=== PATIENT | female | born 1995 | race American Indian/Alaskan Native ===

== ENCOUNTER 2017-04-24 15:30 | Emergency (ER) | payer SELFPAY ==
[2017-04-24 18:10] LABS: Bacteria,Urine 1+ /HPF (Negative); Bilirubin,Urine NEG (Negative); Blood,Urine MOD (Negative); Ketones,Urine NEG (Negative); Leukocyte Esterase,Urine TR (Negative); Mucus,Urine FEW /HPF; Nitrite,Urine NEG (Negative); Protein,Urine <15 mg/dL mg/dL (Negative)
--- NOTE | 2017-04-24 19:24 | Emergency Department Report ---
ED Female HPI - General Chief complaint: Urogenital-Female Stated complaint: POSS STD Time Seen by Provider: 04/24/17 20:00 Source: patient, family Mode of arrival: Ambulatory Limitations: No Limitations - History of Present Illness Initial comments: Patient reports that she was told from a clinic that she went to and had STD testing that she has Chlamydia and she was told to come to the hospital to be treated. Patient is asymptomatic. She's not having any abdominal/pelvic pain. Denies any back pain. Denies any urinary burning frequency or urgency. Denies any fever or chills. Denies any nausea or vomiting. Her boyfriend is also here for treatment and he is not having any symptoms. She states that she has complete STD testing and they told her that she has antibodies for chlamydia. I discussed with her that there are no antibodies for Chlamydia he could be something else but she will need to call the clinic and get clarification. She said she wants to be treated for Chlamydia because they told her that she has Chlamydia. Complaint: possible STD -: unknown Severity scale (0 -10): 0 Are you Now?: No Last Menstrual Period: 04/13/17 EDC: 01/18/18 Associated Symptoms: denies: vaginal discharge, vaginal bleeding, abdominal pain , nausea/vomiting, fever/chills, headaches, loss of appetite, dysuria, hematuria , rash, seizure, shortness of breath, syncope, weakness - Related Data Sexually active: Yes Previous Rx's Medication Instructions Recorded Last Taken Type Nitrofurantoin [place]/M-Cryst 100 mg PO Q12HR #14 capsule 04/24/17 Unknown Rx [Macrobid CAP] Allergies Allergy/AdvReac Type Severity Reaction Status Date / Time No Known Allergies Allergy Unverified 04/24/17 16:29 ED Review of Systems ROS: Stated complaint: POSS STD Other details as noted in HPI Comment: All other systems reviewed and negative Constitutional: no symptoms reported ENT: denies: throat pain Respiratory: no symptoms reported Cardiovascular: denies: chest pain, palpitations, edema, syncope Genitourinary: denies: urgency, dysuria, frequency, hematuria, discharge, abnormal menses, dyspareunia Musculoskeletal: denies: back pain, joint swelling, arthralgia, myalgia Skin: denies: rash Neurological: denies: headache, numbness, paresthesias, confusion, abnormal gait , vertigo ED Past Medical Hx - Past Medical History Previous Medical History?: No - Surgical History Past Surgical History?: No - Family History Family history: no significant - Social History Smoking Status: Never Smoker Substance Use Type: None - Medications Home Medications: Home Medications Medication Instructions Recorded Confirmed Last Taken Type Nitrofurantoin [place]/M-Cryst 100 mg PO Q12HR #14 capsule 04/24/17 Unknown Rx [Macrobid CAP] ED Physical Exam - General Limitations: No Limitations General appearance: alert, in no apparent distress - Head Head exam: Present: atraumatic, normocephalic, normal inspection - Eye Eye exam: Present: normal appearance, PERRL, EOMI. Absent: periorbital swelling , periorbital tenderness - ENT ENT exam: Present: normal exam, normal orophraynx, mucous membranes moist, TM's normal bilaterally, normal external ear exam - Neck Neck exam: Present: normal inspection, full ROM. Absent: tenderness, meningismus, lymphadenopathy - Respiratory Respiratory exam: Present: normal lung sounds bilaterally. Absent: respiratory distress, chest wall tenderness, accessory muscle use - Cardiovascular Cardiovascular Exam: Present: regular rate, normal rhythm, normal heart sounds - GI/Abdominal GI/Abdominal exam: Present: soft, normal bowel sounds. Absent: distended, tenderness, guarding, rebound, rigid, organomegaly, mass, bruit, pulsatile mass , hernia - Extremities Exam Extremities exam: Present: normal inspection, full ROM, normal capillary refill , other (no clubbing, cyanosis or edema.). Absent: tenderness, pedal edema, joint swelling, calf tenderness - Back Exam Back exam: Present: normal inspection, full ROM. Absent: tenderness, CVA tenderness (R), CVA tenderness (L), muscle spasm, paraspinal tenderness, vertebral tenderness, rash noted - Neurological Exam Neurological exam: Present: alert, oriented X3, normal gait, reflexes normal. Absent: motor sensory deficit - Psychiatric Psychiatric exam: Present: normal affect, normal mood - Skin Skin exam: Present: warm, dry, intact, normal color. Absent: rash ED Course Vital Signs 04/24/17 04/24/17 16:30 19:57 Temperature 68 F L 98.0 F Pulse Rate 68 73 Respiratory 16 20 Rate Blood Pressure 110/56 Blood Pressure 115/68 [Left] O2 Sat by Pulse 100 100 Oximetry - Reevaluation(s) Reevaluation #1: 04/24/17 20:45 Patient treated empirically for gonorrhea and chlamydia in emergency room. She had no adverse reaction to medication. ED Medical Decision Making - Lab Data Lab Results 04/24/17 Range/Units 15:39 Urine Color Yellow (Yellow) Urine Turbidity Clear (Clear) Urine pH 7.0 (5.0-7.0) Ur Specific [place] 1.024 (1.003-1.030) Urine Protein <15 mg/dl (Negative) mg/dL Urine Glucose (UA) Neg (Negative) mg/dL Urine Ketones Neg (Negative) mg/dL Urine Blood Mod (Negative) Urine Nitrite Neg (Negative) Urine Bilirubin Neg (Negative) Urine Urobilinogen 2.0 (<2.0) mg/dL Ur Leukocyte Esterase Tr (Negative) Urine WBC (Auto) 5.0 (0.0-6.0) /HPF Urine RBC (Auto) 2.0 (0.0-6.0) /HPF U Epithel Cells (Auto) 1.0 (0-13.0) /HPF Urine Bacteria (Auto) 1+ (Negative) /HPF Urine Mucus Few /HPF Urine HCG, Qual Negative (Negative) Urine culture sent - Medical Decision Making ED course: Patient's care report that she had complete STD testing done at a clinic and they called her and told her that she has Chlamydia antibodies. Patient is here to be treated for Chlamydia. I discussed with her that there are no chlamydia and provided bodies but she could have antibodies for herpes or other STDs and she will need to call the clinic that did test him to clarify. Patient is asymptomatic and here with her boyfriend for treatment and wants to be treated Empirically. Patient treated for gonorrhea and chlamydia in emergency room with Rocephin 250 mg IM and azithromycin 1 g by mouth. She had no adverse reaction from medication. I also discussed with her that she has a bladder infection and she says she gets this frequently. She also said that she will take antibiotic that left over from previous urinary tract infection. I told her that usually when she is prescribed antibiotic she is supposed to take all the antibiotic otherwise infection will not clear up. I instructed her to urinate after each sexual activity and when she gets the urge to go and also to increase her fluid intake. She voiced understanding and discharged home in stable condition with prescription for Macrobid and to follow -up with her primary care physician and clinic that did her STD tests then in 2 days. Critical care attestation.: If time is entered above; I have spent that time in minutes in the direct care of this critically ill patient, excluding procedure time. ED Disposition Clinical Impression: Acute cystitis without hematuria, Concern about STD in female without diagnosis Disposition: TO HOME OR SELFCARE Is pt being admited?: No Does the pt Need Aspirin: No Condition: Stable Instructions: Safe Sex (ED), Sexually Transmitted Diseases (ED), Urinary Tract Infection in Women (ED) Additional Instructions: Please ensure that you take all antibiotics to treat urinary tract infection Please call the clinic that he had your STD testing done at to verify results. Please refrain from having sex for at least 2 weeks. return to clinic to have STD testing in 7-10 days. practice safe sex. Prescriptions: Nitrofurantoin [place]/M-Cryst [Macrobid CAP] 100 mg PO Q12HR #14 capsule Referrals: PRIMARY CARE, [Primary Care Provider] - 7-10 days Forms: Accompanied Note, Work/School Release Form(ED)
[2017-04-24] MEDS ORDERED: ZITHROMAX PO ONE (20:02)
[2017-04-24] MEDS ORDERED: ROCEPHIN IM ONE (20:02)
[2017-04-24] MEDS ORDERED: XYLOCAINE 1% MPF 5 mL INFILTRATI ONE (20:02)
[2017-04-25 11:32] VITALS: BP 115/68
== END 2017-04-24 20:55 | disposition home or self-care (01) ==
LOC: ED 15:30
DX: N30.00 Acute cystitis without hematuria (principal)
CPT/HCPCS: 81001; 81025; 87076; 87086; 87186; 96372; 99283; J0696

== ENCOUNTER 2017-06-26 08:31 | Emergency (ER) | payer OTHER ==
[2017-06-26 09:31] LABS: Hematocrit 36.5 % (30.3-42.9); Hemoglobin 12.2 gm/dl (10.1-14.3); Mean Corpuscular HGB Conc 33 % (30-34); Mean Corpuscular Hemoglobin 30 pg (28-32); Mean Corpuscular Volume 90 fl (79-97); Platelet Count 165 K/mm3 (140-440); Red Blood Count 4.05 M/mm3 (3.65-5.03); Red Cell Distribution Width 14.2 % (13.2-15.2); White Blood Count 4.7 K/mm3 (4.5-11.0)
[2017-06-26 09:35] LABS: Alanine Aminotransferase 7 units/L (7-56); Albumin/Globulin Ratio 1.5 %; Alkaline Phosphatase 47 units/L (35-129); Anion Gap 17 mmol/L; BUN/Creatinine Ratio 17; Blood Urea Nitrogen 10 mg/dL (7-17); Calcium 8.7 mg/dL (8.4-10.2); Carbon Dioxide 23 mmol/L (22-30); Chloride 102.5 mmol/L (98-107); Glucose 93 mg/dL (65-100); Lipase 21 units/L (13-60); Sodium 138 mmol/L (137-145); Total Protein 6.6 g/dL (6.3-8.2)
[2017-06-26 09:41] LABS: Basophils % (Auto) 0.2 % (0.0-1.8); Eosinophils % (Auto) 0.8 % (0.0-4.3)
[2017-06-26 11:28] LABS: Bacteria,Urine 1+ /HPF (Negative); Bilirubin,Urine NEG (Negative); Blood,Urine NEG (Negative); Ketones,Urine NEG (Negative); Leukocyte Esterase,Urine SM (Negative); Mucus,Urine 1+ /HPF; Nitrite,Urine POS (Negative); Protein,Urine <15 mg/dL mg/dL (Negative); Urobilinogen,Urine < 2.0 mg/dL (<2.0)
--- NOTE | 2017-06-26 21:43 | Emergency Department Report ---
ED Abdominal Pain HPI - General Chief Complaint: Abdominal Pain Stated Complaint: VAG/ANAL DISCOMFORT Time Seen by Provider: 06/26/17 21:30 Source: patient Mode of arrival: Ambulatory Limitations: No Limitations - History of Present Illness Initial Comments: 21 yo female who comes in today due to abdominal pain, dysuria, in addition to vaginal/anal pain times four days. She states that she may be constipated, and she has a history of uti's. Is able to tolerate po intake with no nausea/ vomiting. Abdominal pain described as achy, sharp, and diffuse. The patient also admits to having hematuria. Denies any pertinent past medical history. -: days(s) (four) Location: diffuse Radiation: none Migration to: no migration Severity: moderate Severity scale (0 -10): 5 Quality: cramping, aching Consistency: intermittent Improves With: nothing Worsens With: nothing Context: other (none) Associated Symptoms: constipation Treatments Prior to Arrival: other (none) - Related Data LMP (females 10-50): unknown Previous Rx's Medication Instructions Recorded Last Taken Type Nitrofurantoin [place]/M-Cryst 100 mg PO Q12HR #14 capsule 04/24/17 Unknown Rx [Macrobid CAP] Ciprofloxacin HCl [Cipro] 250 mg PO BID #14 tablet 06/26/17 Unknown Rx Allergies Allergy/AdvReac Type Severity Reaction Status Date / Time No Known Allergies Allergy Unverified 04/24/17 16:29 ED Review of Systems ROS: Stated complaint: VAG/ANAL DISCOMFORT Other details as noted in HPI Constitutional: denies: chills, fever Eyes: denies: eye pain, eye discharge, vision change ENT: denies: ear pain, throat pain Respiratory: denies: cough, shortness of breath, wheezing Cardiovascular: denies: chest pain, palpitations Endocrine: no symptoms reported Gastrointestinal: as per HPI Genitourinary: as per HPI, dysuria Musculoskeletal: denies: back pain, joint swelling, arthralgia Skin: denies: rash, lesions Neurological: denies: headache, weakness, paresthesias Psychiatric: denies: anxiety, depression Hematological/Lymphatic: denies: easy bleeding, easy bruising ED Past Medical Hx - Past Medical History Previous Medical History?: No - Surgical History Past Surgical History?: No - Social History Smoking Status: Never Smoker Substance Use Type: None - Medications Home Medications: Home Medications Medication Instructions Recorded Confirmed Last Taken Type Nitrofurantoin [place]/M-Cryst 100 mg PO Q12HR #14 capsule 04/24/17 Unknown Rx [Macrobid CAP] Ciprofloxacin HCl [Cipro] 250 mg PO BID #14 tablet 06/26/17 Unknown Rx ED Physical Exam - General Limitations: No Limitations General appearance: alert, in no apparent distress - Head Head exam: Present: atraumatic, normocephalic - Eye Eye exam: Present: normal appearance - ENT ENT exam: Present: mucous membranes moist - Neck Neck exam: Present: normal inspection - Respiratory Respiratory exam: Present: normal lung sounds bilaterally. Absent: respiratory distress - Cardiovascular Cardiovascular Exam: Present: regular rate, normal rhythm. Absent: systolic murmur, diastolic murmur, rubs, gallop - GI/Abdominal GI/Abdominal exam: Present: tenderness (diffusely ) - Rectal Rectal exam: Present: deferred - Extremities Exam Extremities exam: Present: normal inspection - Back Exam Back exam: Present: CVA tenderness (R), CVA tenderness (L) - Neurological Exam Neurological exam: Present: alert, oriented X3 - Psychiatric Psychiatric exam: Present: normal affect, normal mood - Skin Skin exam: Present: warm, dry, intact, normal color. Absent: rash ED Course Vital Signs 06/26/17 06/26/17 06/26/17 08:52 22:01 22:07 Temperature 98.8 F 98.1 F Pulse Rate 85 90 Respiratory 16 16 16 Rate Blood Pressure 117/66 Blood Pressure 107/67 [Right] O2 Sat by Pulse 98 99 98 Oximetry - Reevaluation(s) Reevaluation #1: 06/26/17 21:45 Abdominal flat/upright pending. Workup revealed a uti currently. ED Medical Decision Making - Lab Data Result diagrams: 06/26/17 08:57 06/26/17 08:57 - Radiology Data Radiology results: image reviewed Constipation - Medical Decision Making Uti Constipation - Differential Diagnosis Uti, constipation Critical care attestation.: If time is entered above; I have spent that time in minutes in the direct care of this critically ill patient, excluding procedure time. ED Disposition Clinical Impression: UTI (urinary tract infection), Constipation Disposition: DC-01 TO HOME OR SELFCARE Is pt being admited?: No Does the pt Need Aspirin: No Condition: Stable Instructions: Abdominal Pain (ED), Constipation (ED), Urinary Tract Infection in Women (ED) Additional Instructions: Take medicine as prescribed. Please go to the nearest pharmacy and purchase magnesium citrate. Use as directed for constipation. Prescriptions: Ciprofloxacin HCl [Cipro] 250 mg PO BID #14 tablet Referrals: PRIMARY CARE, [Primary Care Provider] - 3-5 Days
[2017-06-26 22:08] VITALS: BP 107/67
--- NOTE | 2017-06-26 22:45 | XRay Report ---
FINAL REPORT PROCEDURE: Portable KUB TECHNIQUE: Abdominal radiograph, single supine AP view. HISTORY: abdominal pain COMPARISON: No prior studies are available for comparison. FINDINGS: Moderate amount of stool seen throughout a large portion of the colon. The patient may be constipated. No free intraperitoneal gas or bowel obstruction identified. No abnormal masses or calcifications are visualized. No acute bony abnormalities are visualized. IMPRESSION: Stool pattern as described. The patient may be constipated. No other abnormality is identified
== END 2017-06-26 23:20 | disposition home or self-care (01) ==
LOC: ED 08:31
DX: N39.0 Urinary tract infection, site not specified (principal); K59.00 Constipation, unspecified
CPT/HCPCS: 36415; 74000; 80053; 81001; 81025; 83690; 85025; 99283

== ENCOUNTER 2018-01-02 19:55 | Emergency (ER) | payer OTHER ==
[2018-01-02 20:25] VITALS: BP 110/58
[2018-01-03 00:32] LABS: HCG Qualitative,Urine Negative (Negative)
[2018-01-03] MEDS ORDERED: MOTRIN PO ONE (05:19)
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
== END 2018-01-03 05:35 | disposition home or self-care (01) ==
LOC: ED 19:55
DX: S13.9XXA Sprain of joints and ligaments of unspecified parts of neck, initial encounter (principal); V49.59XA Passenger injured in collision with other motor vehicles in traffic accident, initial encounter; Y93.89 Activity, other specified; Y99.8 Other external cause status; Y92.488 Other paved roadways as the place of occurrence of the external cause
CPT/HCPCS: 81025; 99282